=== PATIENT | female | born 1995 | race Caucasian/White ===

== ENCOUNTER 2022-09-03 17:41 | Emergency (ER) | payer SELFPAY ==
[~2022-09-03] VITALS: Ht 162 cm; Wt 77.0 kg
[~2022-09-03 17:41] MED LIST: CYCL10TA25 PO; METR500T PO; MONT5TAB11; NAPR-915 PO; NEOMYCIN EAR; ONDA4TAB8 PO; PARO10TA21
--- NOTE | 2022-09-03 18:09 | ED Upper Extremity ---
General Chief Complaint: Upper Extremity Stated Complaint: RIGHT HAND INJURY Source: patient, mother History of Present Illness Date Seen by Provider: Sep 03, 2022 Time Seen by Provider: 17:53 Initial Comments PT ARRIVES VIA POV WITH MOTHER AND A MALE. DROVE HERE FROM [place], WHERE PT LIVES C/O RIGHT INDEX FINGER INJURY ON Sunday09/01/22--STATES SHE WAS AT A GYM AND DROPPED A WEIGHT ON HER FINGER WENT TO ER IN [place], AND WAS DX WITH A FINGER FRACTURE, PARTIAL NAIL AVULSION, AND REQUIRED 9 SUTURES SHE DID RECEIVE A TETANS VACCINATION AT THAT TIME WELL SHE WAS GIVEN RX'S FOR KEFLEX AND HYDROCODONE LAST TOOK HYDROCODONE A COUPLE OF HOURS AGO SHE WAS SUPPOSED TO FOLLOW UP WITH DR. MEDELLIN, ORTHOPEDIC SURGEON, IN [facility] SHE HAS NOT MADE AN APPOINTMENT YET. THEY DROVE HERE FROM [facility] FOR UNDETERMINED REASONS, DUE TO CONTINUED PAIN, AND STATES THE WOUND IS STILL BLEEDING SHE STATES THEY DID CHANGE THE DRESSING YESTERDAY AT HOME SHE HAS A FINGER SPLINT IN PLACE WELL. PCP: NONE--DOES NOT HAVE A DR. LUNA Allergies and Home Medications Allergies Coded Allergies: No Known Drug Allergies (Unverified , 04/01/09) Patient Home Medication List Cyclobenzaprine HCl (Cyclobenzaprine HCl) 10 Mg Tablet, 10 MG PO Q8H Prescribed by: STACY MACHADO on 12/06/17141 Metronidazole (Flagyl) 500 Mg Tablet, 500 MG PO QID Prescribed by: STACY MACHADO on 12/06/17141 Naproxen (Naproxen) 500 Mg Tablet, 500 MG PO BID Prescribed by: STACY MACHADO on 12/06/17141 Ondansetron (Zofran Odt) 4 Mg Tab.rapdis, 4 MG PO Q4H Prescribed by: STACY MACHADO on 12/06/17141 Review of Systems Constitutional: no symptoms reported Musculoskeletal: see HPI Skin: see HPI Psychiatric/Neurological: No Symptoms Reported Past Fqyzizj-Ueqfjp-Ejqnac Hx Patient Social History Tobacco Use?: No Substance use?: Yes Substance type: Marijuana Alcohol Use?: Yes Alcohol type: Beer, Hard Liquor Immunizations Up To Date Tetanus Booster (TDap): Less than 5yrs PED Vaccines UTD: Yes Seasonal Allergies Seasonal Allergies: No Past Medical History Surgeries: No Respiratory: No Cardiac: No Neurological: No Reproductive Disorders: No Female Reproductive Disorders: Menstrual Problems Genitourinary: No Gastrointestinal: No Musculoskeletal: No Endocrine: No HEENT: No Cancer: No Psychosocial: Yes Anxiety Integumentary: No Blood Disorders: No Physical Exam Vital Signs Vital Signs - First Documented 09/03/22 17:50 Temp 37.0 Pulse 83 Resp 18 B/P (MAP) 139/90 (106) Pulse Ox 99 O2 Delivery Room Air Capillary Refill : Height, Weight, BMI Height: 5'4.00" Weight: 174lbs. oz. 78.288503ov; BMI Method:Stated General Appearance: WD/WN, no apparent distress Hand: Right (RIGHT INDEX FINGER WITH SUTURED WOUND TO DISTAL PHALANX, SUTURES ARE INTACT, WOUND IS APPROXIMATED WITHOUT SIGNS OF DEHICSCENCE. THERE ARE SUTURES THROUGH THE PROXIMAL NAIL--C/W REPORTED PARTIAL NAIL AVULSION. THERE IS NO SUBUNGUAL HEMATOMA NOTED. DRIED BLOOD NOTED ON SUTURE LINE. THERE ARE NO SIGNS OF INFECTION, NO SIGNS OF NECROSIS, DISTAL SENSORY AND VASCULAR ARE INTACT. THERE IS NO BLEEDING . THERE IS A VERY SCANT AMOUNT OF DRIED BLOOD ON THE DRESSING. THERE IS NO PURULENT DRAINAGE. THERE IS NO ACTIVE BLEEDING FROM THE WOUND. ) Progress/Results/Core Measures Results/Orders My Orders Orders - STACY MACHADO DO Lidocaine 2% Viscous 15 Ml (Xylocaine Vi (09/03/22 18:15) Medications Given in ED Current Medications Medications Dose Ordered Sig/Fredo Route Start Time Stop Time Status Last Admin Dose Admin Lidocaine HCl 5 ml ONCE ONCE MM 09/03/22 18:15 09/03/22 18:17 DC 09/03/22 18:20 5 ML Vital Signs/I&O 09/03/22 17:50 Temp 37.0 Pulse 83 Resp 18 B/P (MAP) 139/90 (106) Pulse Ox 99 O2 Delivery Room Air Progress Progress Note : Progress Note VERY DIFFICULT TO EXAMINE, SHE IS VERY RELUCTANT TO ALLOW ANYONE TO TOUCH THE AREA, EVEN TO REMOVE SPLINT AND DRESSING, DUE TO PAIN SPLINT AND DRESSING EVENTUALLY REMOVED REFUSES TO ALLOW ANYONE TO CLEAN THE WOUND--WANTS A "NERVE BLOCK" BEFORE SHE WILL ALLOW ANYONE TO TOUCH THE WOUND ADVISED HER THAT A "NERVE BLOCK" WAS NOT INDICATED FOR A VERY GENTLE CLEANING AND EXAM AND DRESSING CHANGE. VISCOUS LIDOCAINE AND BETASEPT ON GAUZE WAS APPLIED TO THE WOUND OFFERED TO DO XRAY, AND PT DECLINES, STATES IT WAS DONE AT [place]. DISCUSSED ANTICIPATED COURSE, STRESSED THE IMPORTANCE OF FOLLOW UP WITH ORTHOPEDIC SURGEON PREVIOUSLY ARRANGED, AND RETURN PRECAUTIONS Departure Impression Primary Impression: Encounter for post-traumatic wound check Disposition: HOME, SELF-CARE Condition: Stable Departure-Patient Inst. Referrals: NO,LOCAL PHYSICIAN (PCP/Family) Primary Care Physician Patient Instructions: Wound Care ED Add. Discharge Instructions: CONTINUE PRESCRIBED MEDICATIONS PREVIOUSLY INSTRUCTED CONTINUE WOUND CARE PREVIOUSLY INSTRUCTED CONTINUE FINGER SPLINT PREVIOUSLY INSTRUCTED FOLLOW UP WITH ORTHOPEDIC SURGEON IN [place] PREVIOUSLY INSTRUCTED. CALL SUNDAY MORNING TO SCHEDULE APPOINTMENT. All discharge instructions reviewed with patient and/or family. Voiced understanding. STACY MACHADO DO Sep 03, 2022 18:09
[2022-09-03] MEDS ORDERED: LIDOCAINE 2% VISCOUS 15 ML UDC MM ONE (18:15)
[2022-09-03 20:30] VITALS: BP 122/77
== END 2022-09-03 19:44 | disposition home or self-care (01) ==
LOC: EDUNIT# 17:41 → ER 17:46
DX: Z48.01 Encounter for change or removal of surgical wound dressing (principal); Z28.310 Unvaccinated for COVID-19
CPT/HCPCS: 99282